=== PATIENT | male | born 1935 | race Caucasian/White ===

== ENCOUNTER 2017-01-24 18:34 | Emergency (ER) | payer MEDICARE, OTHER ==
[2017-01-24 20:28] LABS: HEMOGLOBIN 12.3 gm/dl (14.0-17.5); RED BLOOD COUNT 4.45 M/UL (4.20-5.50); WHITE BLOOD COUNT 3.4 K/UL (4.5-11.0)
== END 2017-01-25 02:40 | disposition home or self-care (01) ==
LOC: ER1 18:34
PROVIDERS: Student in an Organized Health Care Education/Training Program
DX: I73.9 Peripheral vascular disease, unspecified (principal); N18.9 Chronic kidney disease, unspecified; D61.818 Other pancytopenia; I48.91 Unspecified atrial fibrillation; Z88.1 Allergy status to other antibiotic agents; Z88.0 Allergy status to penicillin; Z88.8 Allergy status to other drugs, medicaments and biological substances; Z91.041 Radiographic dye allergy status
CPT/HCPCS: 36415; 71010; 80053; 82550; 82553; 83874; 83880; 84484; 85025; 85610; 85730; 93005; 99284